=== PATIENT | female | born 1980 | race Caucasian/White ===

== ENCOUNTER 2016-06-21 10:35 | Emergency (ER) | payer MEDICARE, MEDICAID ==
[2016-06-21 10:53] VITALS: BP 126/86
--- NOTE | 2016-06-21 11:19 | EDM.PDOC ---
ED HPI Trauma - General Chief Complaint: Lower Extremity Injury/Pain Stated Complaint: RT LEG PAIN Time Seen by Provider: 06/21/16 11:00 Source: Reports: Patient History Limitations: Reports: No limitations - History of Present Illness INITIAL COMMENTS - FREE TEXT/NARRATIVE: 35-year-old female with right lower stream the radiculopathy scheduled for back surgery in 5 days. She had a preoperative physical exam this morning but is having increased pain and came to the emergency room for pain relief. Severity: moderate Associated Symptoms: Denies: headache, lightheadedness Allergies/ADRs: Allergies No Known Allergies Allergy (Verified 05/09/16 10:52) Home Medications: Ambulatory Orders Cetirizine [ZyrTEC] 10 mg PO DAILY 02/23/15 [Confirmed 06/21/16] Spironolactone [Aldactone] 100 mg PO DAILY 02/23/15 [Confirmed 06/21/16] lamoTRIgine [Lamotrigine ER] 25 mg PO TID 02/23/15 [Confirmed 06/21/16] metFORMIN HCl [Metformin HCl] 1,000 mg PO BID 02/23/15 [Confirmed 06/21/16] ALPRAZolam [Alprazolam] 1 mg PO TID PRN 02/26/16 [Confirmed 06/21/16] Baclofen [Baclofen] 10 mg PO DAILY 05/09/16 [Confirmed 06/21/16] Gabapentin [Gabapentin] 300 mg PO TID 05/09/16 [Confirmed 06/21/16] Norgestimate-Ethinyl Estradiol [Trinessa Lo Tablet] 1 tab PO DAILY 05/09/16 [ Confirmed 06/21/16] valACYclovir HCl [valACYclovir] 1,000 mg PO DAILY 05/09/16 [Confirmed 06/21/16] Acetaminophen/HYDROcodone [[place] 325-5 MG] 1 - 2 tab PO Q6H PRN 05/17/16 [ Confirmed 06/21/16] Past Medical History Gastrointestinal History: Reports: Chronic constipation, Hemorrhoids Genitourinary History: Reports: Renal calculus 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: Polycystic Ovaries Musculoskeletal History: Reports: Back pain, chronic Other Musculoskeletal History: bulging disk Psychiatric History: Reports: Anxiety, Bipolar, Emotional problems, Suicide attempt, Suicidal ideation Endocrine/Metabolic History: Reports: Diabetes, type II Dermatologic History: Reports: Psoriasis - Past Surgical History Female Surgical History: Reports: Lithotripsy/ESWL Social & Family History - Tobacco Use Smoking Status *Q: Never Smoker Second Hand Smoke Exposure: No - Caffeine Use Caffeine Use: Reports: Coffee Other Caffeine Use: 1 per day - Alcohol Use Days Per Week of Alcohol Use: 0 - Recreational Drug Use Recreational Drug Use: No Review of Systems - Review of Systems Review Of Systems: See Below Constitutional: Denies: fever Respiratory: Denies: shortness of breath Cardiovascular: Denies: chest pain GI/Abdominal: Denies: Abdominal pain Neurological: Denies: headache Trauma Exam - Physical Exam Exam: See Below Exam Limited By: No limitations General Appearance: Reports: alert, moderate distress (Patient is tearful, looks uncomfortable) Respiratory Exam: Reports: no respiratory distress Neurologic: Reports: no motor/sensory deficits (She has some radiculopathy when raising the right leg but her strength is symmetric and I see no atrophy of the leg) Course - Vital Signs Last Recorded V/S: Last Vital Signs Temp 98.1 F 06/21/16 10:53 Pulse 83 06/21/16 10:53 Resp 16 06/21/16 10:53 BP 126/86 06/21/16 10:53 Pulse Ox 96 06/21/16 10:53 - Re-Assessments/Exams Free Text/Narrative Re-Assessment/Exam: 06/21/16 11:18 Patient was given 15 doses of Dilaudid 2 mg to take one every 6 hours until her surgery. I emphasized the importance of using the pain medication as directed. She will be getting her surgery on the sixth as scheduled Departure - Departure Time of Disposition: 12:17 Disposition: Home, Self-Care 01 Condition: good Clinical Impression: Lumbar back pain with radiculopathy affecting right lower extremity Instructions: Back Pain, Adult, [id number] Referrals: PCP,None [Primary Care Provider] - Forms: ED Department Discharge Care Plan Goals: Continue with your current medications, add Dilaudid 2 mg every 6 hours as needed for pain and have your surgery as scheduled.
== END 2016-06-21 11:45 | disposition home or self-care (01) ==
LOC: JP.ED 10:35
DX: M54.17 Radiculopathy, lumbosacral region (principal); F41.9 Anxiety disorder, unspecified; F31.9 Bipolar disorder, unspecified; E11.9 Type 2 diabetes mellitus without complications; Z79.899 Other long term (current) drug therapy
CPT/HCPCS: 99283

== ENCOUNTER 2016-11-20 21:42 | Emergency (ER) | payer MEDICARE, MEDICAID ==
[2016-11-20 22:44] VITALS: BP 150/91
--- NOTE | 2016-11-20 23:02 | EDM.PDOC ---
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 She scraped her left cheek and sustained a laceration to the left side of her forehead. No loss of consciousness No nausea no vomiting Materially she couldn't see over left eye but her vision is fine now. No other injuries apart from a superficial scrape her right knee Left Head Pain Score (Numeric/FACES): 5 - Related Data Allergies Allergy/AdvReac Type Severity Reaction Status Date / Time No Known Allergies Allergy Verified 05/09/16 10:52 Home Meds: Home Meds Cetirizine [ZyrTEC] 10 mg PO DAILY 02/23/15 [History] Spironolactone [Aldactone] 100 mg PO DAILY 02/23/15 [History] metFORMIN HCl [Metformin HCl] 1,000 mg PO BID 02/23/15 [History] valACYclovir HCl [valACYclovir] 1,000 mg PO DAILY 05/09/16 [History] ARIPiprazole [Abilify] 5 mg PO DAILY 11/20/16 [History] Norgestimate-Ethinyl Estradiol [Ortho Tri-Cyclen 28 Tablet] 11/20/16 [History] Past Medical History Gastrointestinal History: Reports: Chronic Constipation, Hemorrhoids Genitourinary History: Reports: Renal Calculus 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: Polycystic Ovaries Musculoskeletal History: Reports: Back Pain, Chronic Other Musculoskeletal History: bulging disk Psychiatric History: Reports: Anxiety, Bipolar, Emotional Problems, Suicide Attempt, Suicidal Ideation Endocrine/Metabolic History: Reports: Other (See Below) Other Endocrine/Metabolic History: pcos Dermatologic History: Reports: Psoriasis - Past Surgical History Female Surgical History: Reports: Lithotripsy/ESWL Social & Family History - Tobacco Use Smoking Status *Q: Never Smoker Second Hand Smoke Exposure: No - Caffeine Use Caffeine Use: Reports: Soda Other Caffeine Use: 1 per day - Alcohol Use Days Per Week of Alcohol Use: 0 - Recreational Drug Use Recreational Drug Use: No ED ROS GENERAL - Review of Systems Review Of Systems: See Below Musculoskeletal: Reports: Other (Scrape and small amount swelling and pain right knee) Skin: Reports: Other (Scraped his left cheek and laceration to the left side of forehead) Neurological: Reports: Headache ED EXAM, SKIN/RASH Exam: See Below Exam Limited By: No Limitations General Appearance: Alert, Anxious, Mild Distress Eye Exam: Bilateral Eye: Normal Inspection Ears: Normal External Exam, Normal Canal Nose: Normal Inspection, Normal Mucosa Throat/Mouth: Normal Inspection, Normal Teeth, Normal Oropharynx, Normal Voice Head: Other (Abrasion to the left cheek, 2 cm laceration left side of foreheadNo injury to nose or eyes or mouth) Neck: Normal Inspection, Non-Tender Respiratory/Chest: No Respiratory Distress, No Accessory Muscle Use Cardiovascular: Regular Rate, Rhythm, Tachycardia Extremities: Other (Superficial abrasion of right knee anterior aspect normal range of motion) Neurological: Alert, Oriented, No Motor/Sensory Deficits Skin: Warm, No Rash Lymphatic: No Adenopathy ED SKIN PROCEDURES - Laceration/Wound Repair Left Forehead Lac/Wound length In cm: 2 Appearance: Subcutaneous Distal NVT: Neuro & Vascular Intact Anesthetic Type: Local Local Anesthesia - Lidocaine (Xylocaine): 1% with EPI Local Anesthetic Volume: 2cc Skin Prep: Chlorhexidine (Hibiciens) Exploration/Debridement/Repair: Wound Explored, No Foreign Material Found, Other (No debridement or undermining) Closed with: Sutures Suture Size: other (6-0) # of Sutures: 3 Sterile Dressing Applied: Nurse Tetanus Status Addressed: Yes Complications: No Course - Vital Signs Last Recorded V/S: Last Vital Signs Temp 37.2 C 11/20/16 22:50 Pulse 117 H 11/20/16 22:50 Resp 18 11/20/16 22:50 BP 150/91 H 11/20/16 22:50 Pulse Ox 97 11/20/16 22:50 - Orders/Labs/Meds Orders: Active Orders 24 hr Category Date Time Status Occlusive Dressing [Wound Care] [RC] DAILY Care 11/20/16 23:30 Active Vaccines to be Administered [RC] PER UNIT ROUTINE Care 11/20/16 23:33 Active Meds: Medications Discontinued Medications Generic Name Dose Route Start Last Admin Trade Name Tay PRN Reason Stop Dose Admin Bacitracin 1 dose 11/20/16 23:31 11/20/16 23:37 Bacitracin Oint 1 Gm TOP 11/20/16 23:32 1 dose ONETIME ONE Administration Diphtheria/Tetanus/Acell Pertussis 0.5 ml 11/20/16 23:33 11/20/16 23:46 Adacel IM 11/20/16 23:34 0.5 ml .ONCE ONE Administration - Re-Assessments/Exams Free Text/Narrative Re-Assessment/Exam: 11/20/16 23:38 36-year-old female with head injury without loss of consciousness, scraped her left cheek and right knee and laceration to left side of forehead TDA P administered Dressing to left forehead after sutures Sutures 3, to be removed 5-6 days 11/21/16 02:27 Departure - Departure Time of Disposition: 23:28 Disposition: Home, Self-Care 01 Condition: Good Clinical Impression: Laceration of forehead without complication Qualifiers: Encounter type: initial encounter Qualified Code(s): S01.81XA - Laceration without foreign body of other part of head, initial encounter Head injury, acute, without loss of consciousness Qualifiers: Encounter type: initial encounter Qualified Code(s): S09.90XA - Unspecified injury of head, initial encounter - Discharge Information Instructions: Stitches, [place], or Adhesive Wound Closure, [id number], Head Injury, Adult, [id number] Referrals: PCP,None [Primary Care Provider] - Forms: ED Department Discharge, ED Return to Work/School Form Additional Instructions: Have your 3 stitches removed in 5-6 days You may bathe as usual The wound will heal faster with a dressing, but you may wish to leave it uncovered - My Orders Last 24 Hours: My Active Orders 11/20/16 23:30 Occlusive Dressing [Wound Care] [RC] DAILY 11/20/16 23:33 Vaccines to be Administered [RC] PER UNIT ROUTINE - Assessment/Plan Last 24 Hours: My Active Orders 11/20/16 23:30 Occlusive Dressing [Wound Care] [RC] DAILY 11/20/16 23:33 Vaccines to be Administered [RC] PER UNIT ROUTINE
[2016-11-20] MEDS ORDERED: Bacitracin Oint 1 GM U/D Packet TOP ONE (23:31)
[2016-11-20] MEDS ORDERED: Diphtheria,Pertussis(Acell),Tetanus Vaccine 0.5 ML SDV IM ONE (23:33)
== END 2016-11-20 23:57 | disposition home or self-care (01) ==
LOC: JP.ED 21:42
DX: S01.81XA Laceration without foreign body of other part of head, initial encounter (principal); S80.211A Abrasion, right knee, initial encounter; F31.9 Bipolar disorder, unspecified; Z79.899 Other long term (current) drug therapy; Z23 Encounter for immunization; Z79.84 Long term (current) use of oral hypoglycemic drugs; W01.198A Fall on same level from slipping, tripping and stumbling with subsequent striking against other object, initial encounter; Y92.009 Unspecified place in unspecified non-institutional (private) residence as the place of occurrence of the external cause
CPT/HCPCS: 12001; 12011; 90471; 90715; 99283-25

== ENCOUNTER 2016-11-25 16:44 | Emergency (ER) | payer MEDICARE, MEDICAID ==
[2016-11-25 16:58] VITALS: BP 136/84
--- NOTE | 2016-11-25 17:10 | EDM.PDOC ---
[id number]: REMOVE STITCHES Time Seen by Provider: 11/25/16 16:59 Source of Information: Reports: Patient History Limitations: Reports: No Limitations - History of Present Illness INITIAL COMMENTS - FREE TEXT/NARRATIVE: 36-year-old female had 3 stitches in her left eyebrow 6 days ago after falling. She is in for suture removal. Location: Reports: Face Severity: Mild - Related Data Allergies Allergy/AdvReac Type Severity Reaction Status Date / Time No Known Allergies Allergy Verified 05/09/16 10:52 Home Meds: Home Meds Cetirizine [ZyrTEC] 10 mg PO DAILY 02/23/15 [History] Spironolactone [Aldactone] 100 mg PO DAILY 02/23/15 [History] metFORMIN HCl [Metformin HCl] 1,000 mg PO BID 02/23/15 [History] valACYclovir HCl [valACYclovir] 1,000 mg PO DAILY 05/09/16 [History] ARIPiprazole [Abilify] 5 mg PO DAILY 11/20/16 [History] Norgestimate-Ethinyl Estradiol [Ortho Tri-Cyclen 28 Tablet] 11/20/16 [History] Past Medical History Gastrointestinal History: Reports: Chronic Constipation, Hemorrhoids Genitourinary History: Reports: Renal Calculus 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: Polycystic Ovaries Musculoskeletal History: Reports: Back Pain, Chronic Other Musculoskeletal History: bulging disk Psychiatric History: Reports: Anxiety, Bipolar, Emotional Problems, Suicide Attempt, Suicidal Ideation Endocrine/Metabolic History: Reports: Other (See Below) Other Endocrine/Metabolic History: pcos Dermatologic History: Reports: Psoriasis - Past Surgical History Female Surgical History: Reports: Lithotripsy/ESWL Social & Family History - Tobacco Use Smoking Status *Q: Never Smoker Second Hand Smoke Exposure: No - Caffeine Use Caffeine Use: Reports: Soda Other Caffeine Use: 1 per day - Alcohol Use Days Per Week of Alcohol Use: 0 - Recreational Drug Use Recreational Drug Use: No ED ROS GENERAL - Review of Systems Review Of Systems: See Below Constitutional: Denies: Fever Respiratory: Denies: Shortness of Breath Neurological: Reports: Dizziness. Denies: Headache Psychiatric: Reports: Anxiety ED EXAM, SKIN/RASH Exam: See Below Exam Limited By: No Limitations General Appearance: Alert, Anxious Head: Other (Patient has 3 small stitches just lateral to the left eyebrow) Respiratory/Chest: No Respiratory Distress Psychiatric: Anxious Course - Vital Signs Last Recorded V/S: Last Vital Signs Temp 97.9 F 11/25/16 16:57 Pulse 100 11/25/16 16:57 Resp 18 11/25/16 16:57 BP 136/84 11/25/16 16:57 Pulse Ox 96 11/25/16 16:57 - Re-Assessments/Exams Free Text/Narrative Re-Assessment/Exam: 11/25/16 17:08 Sutures were removed without difficulty. The patient did have a period of vasovagal discomfort but improved. She just needs to keep the wound clean while healing. Departure - Departure Time of Disposition: 17:17 Disposition: Home, Self-Care 01 Condition: Good Clinical Impression: Visit for suture removal - Discharge Information Instructions: Suture Removal, Care After Referrals: PCP,None [Primary Care Provider] - Forms: ED Department Discharge Care Plan Goals: Keep area clean while healing. Return if concerns of infection or not healing satisfactorily.
== END 2016-11-25 17:18 | disposition home or self-care (01) ==
LOC: JP.ED 16:44
DX: S01.112D Laceration without foreign body of left eyelid and periocular area, subsequent encounter (principal); F20.9 Schizophrenia, unspecified; Z87.442 Personal history of urinary calculi; Z79.899 Other long term (current) drug therapy; W19.XXXD Unspecified fall, subsequent encounter
CPT/HCPCS: 99282

== ENCOUNTER 2017-06-28 12:56 | Emergency (ER) | payer MEDICARE, BC ==
--- NOTE | 2017-06-28 13:03 | EDM.PDOCBH ---
ED HPI GENERAL MEDICAL PROBLEM - General Chief Complaint: Behavioral/Psych Stated Complaint: EVAL Time Seen by Provider: 06/28/17 13:00 Source of Information: Reports: Patient, Old Records, Police History Limitations: Reports: No Limitations - History of Present Illness INITIAL COMMENTS - FREE TEXT/NARRATIVE: 36 yo female brought in by police for suicidal ideation. Wanted to stab herself. Denies ingestions. Has not been taking her psych meds as she does not like the side effects(x 2 weeks). No ETOH. Says now that she is here she really doesn't want to harm herself. Had been in a disagreement with her boyfriend at the time of today's incident. Was here a couple yrs ago for a similar situation. 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 (see below) (none) - Related Data Allergies Allergy/AdvReac Type Severity Reaction Status Date / Time No Known Allergies Allergy Verified 06/28/17 13:02 Home Meds: Home Meds Nitrofurantoin Monohyd/M-Cryst [Macrobid 100 mg Capsule] 100 mg PO Q12H #10 capsule 06/28/17 [Rx] Past Medical History Gastrointestinal History: Reports: Chronic Constipation, Hemorrhoids Genitourinary History: Reports: Renal Calculus 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: Polycystic 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 Musculoskeletal History: Reports: Back Pain, Chronic Other Musculoskeletal History: bulging disk Psychiatric History: Reports: Anxiety, Bipolar, Emotional Problems, Suicide Attempt, Suicidal Ideation Endocrine/Metabolic History: Reports: Other (See Below) Other Endocrine/Metabolic History: pcos Dermatologic History: Reports: Psoriasis - Past Surgical History Female Surgical History: Reports: Lithotripsy/ESWL Social & Family History - Tobacco Use Smoking Status *Q: Never Smoker Second Hand Smoke Exposure: No - Caffeine Use Caffeine Use: Reports: Soda Other Caffeine Use: 1 per day - Alcohol Use Days Per Week of Alcohol Use: 0 - Recreational Drug Use Recreational Drug Use: No ED ROS GENERAL - Review of Systems Review Of Systems: See Below Constitutional: Reports: No Symptoms HEENT: Reports: No Symptoms Respiratory: Reports: No Symptoms Cardiovascular: Reports: No Symptoms GI/Abdominal: Reports: No Symptoms : Reports: No Symptoms Musculoskeletal: Reports: No Symptoms Skin: Reports: No Symptoms Neurological: Reports: No Symptoms Psychiatric: Reports: Depression, Suicidal Ideation (now better) ED EXAM, BEHAVIORAL HEALTH - Physical Exam Exam: See Below Exam Limited By: No Limitations General Appearance: Alert, WD/WN, No Apparent Distress, Obese Eye Exam: Bilateral Eye: Normal Inspection Ears: Normal External Exam, Normal Canal, Hearing Grossly Normal, Normal TMs Nose: Normal Inspection, Normal Mucosa, No Blood Throat/Mouth: Normal Inspection, Normal Lips, Normal Oropharynx, Normal Voice, No Airway Compromise Head: Atraumatic, Normocephalic Neck: Normal Inspection, Supple, Non-Tender Respiratory/Chest: No Respiratory Distress, Lungs Clear, Normal Breath Sounds, No Accessory Muscle Use Cardiovascular: Regular Rate, Rhythm, No Edema GI/Abdominal: Normal Bowel Sounds, Soft, Non-Tender, No Distention Back Exam: Normal Inspection. No: CVA Tenderness (R), CVA Tenderness (L) Extremities: Normal Inspection, Normal Range of Motion, Non-Tender, No Pedal Edema Neurological: Alert, Normal Mood/Affect, CN II-XII Intact, Normal Cognition, No Motor/Sensory Deficits, Oriented x 3 Psychiatric: Alert, Normal Affect, Normal Cognition, Normal Mood, Oriented. No : Homicidal Thoughts, Suicidal Plan, Suicidal Thoughts (denies now), Paranoid Thoughts Skin Exam: Warm, Dry, Intact, Normal color, No rash COURSE, BEHAVIORAL HEALTH COMP - Course Vital Signs: Last Vital Signs Temp 35.8 C 06/28/17 13:06 Pulse 104 H 06/28/17 13:06 Resp 18 06/28/17 13:06 BP 140/94 H 06/28/17 13:06 Pulse Ox 95 06/28/17 13:06 Orders, Labs, Meds: Active Orders 24 hr Category Date Time Status CULTURE URINE [RM] Stat Lab 06/28/17 14:30 Received Laboratory Tests 06/28/17 06/28/17 06/28/17 Range/Units 13:10 13:10 13:10 WBC 7.6 (4.5-11.0) K/uL RBC 5.11 (3.30-5.50) M/uL Hgb 14.0 (12.0-15.0) g/dL Hct 43.3 (36.0-48.0) % MCV 85 (80-98) fL MCH 27 (27-31) pg MCHC 32 (32-36) % Plt Count 266 (150-400) K/uL Sodium 144 (140-148) mmol/L Potassium 3.9 (3.6-5.2) mmol/L Chloride 108 (100-108) mmol/L Carbon Dioxide 23 (21-32) mmol/L Anion Gap 13.0 (5.0-14.0) mmol/L BUN 9 (7-18) mg/dL Creatinine 0.9 (0.6-1.0) mg/dL Est Cr Clr Drug Dosing 79.34 mL/min Estimated GFR (MDRD) > 60 (>60) Glucose 129 H (74-106) mg/dL Calcium 8.8 (8.5-10.1) mg/dL TSH, Ultra Sensitive 2.918 (0.358-3.740) uIU/mL Urine Color Urine Appearance Urine pH (4.5-8.0) Ur Specific [place] (1.008-1.030) Urine Protein (NEGATIVE) mg/dL Urine Glucose (UA) (NEGATIVE) mg/dL Urine Ketones (NEGATIVE) mg/dL Urine Occult Blood (NEGATIVE) Urine Nitrite (NEGATIVE) Urine Bilirubin (NEGATIVE) Urine Urobilinogen (NORMAL) mg/dL Ur Leukocyte Esterase (NEGATIVE) Urine RBC (0-5) Urine WBC (0-5) Ur Epithelial Cells Amorphous Sediment Urine Bacteria Urine Mucus Urine HCG, Qual Salicylates (2.0-20.0) mg/dL Urine Opiates Screen (NEGATIVE) Ur Oxycodone Screen (NEGATIVE) Urine Methadone Screen (NEGATIVE) Ur Propoxyphene Screen (NEGATIVE) Acetaminophen 0.0 L (10.0-30.0) ug/mL Ur Barbiturates Screen (NEGATIVE) Ur Tricyclics Screen (NEGATIVE) Ur Phencyclidine Scrn (NEGATIVE) Ur Amphetamine Screen (NEGATIVE) U Methamphetamines Scrn (NEGATIVE) Urine MDMA Screen (NEGATIVE) U Benzodiazepines Scrn (NEGATIVE) U Cocaine Metab Screen (NEGATIVE) U Marijuana (THC) Screen (NEGATIVE) Ethyl Alcohol mg/dL 06/28/17 06/28/17 06/28/17 Range/Units 13:10 13:10 14:29 WBC (4.5-11.0) K/uL RBC (3.30-5.50) M/uL Hgb (12.0-15.0) g/dL Hct (36.0-48.0) % MCV (80-98) fL MCH (27-31) pg MCHC (32-36) % Plt Count (150-400) K/uL Sodium (140-148) mmol/L Potassium (3.6-5.2) mmol/L Chloride (100-108) mmol/L Carbon Dioxide (21-32) mmol/L Anion Gap (5.0-14.0) mmol/L BUN (7-18) mg/dL Creatinine (0.6-1.0) mg/dL Est Cr Clr Drug Dosing mL/min Estimated GFR (MDRD) (>60) Glucose (74-106) mg/dL Calcium (8.5-10.1) mg/dL TSH, Ultra Sensitive (0.358-3.740) uIU/mL Urine Color Yellow Urine Appearance Cloudy Urine pH 5.0 (4.5-8.0) Ur Specific [place] 1.030 (1.008-1.030) Urine Protein Negative (NEGATIVE) mg/dL Urine Glucose (UA) Normal (NEGATIVE) mg/dL Urine Ketones Negative (NEGATIVE) mg/dL Urine Occult Blood Moderate (NEGATIVE) Urine Nitrite Positive H (NEGATIVE) Urine Bilirubin Negative (NEGATIVE) Urine Urobilinogen Normal (NORMAL) mg/dL Ur Leukocyte Esterase Negative (NEGATIVE) Urine RBC 0-5 (0-5) Urine WBC 10-20 H (0-5) Ur Epithelial Cells Many Amorphous Sediment Not seen Urine Bacteria Many Urine Mucus Moderate Urine HCG, Qual Salicylates < 0.2 L (2.0-20.0) mg/dL Urine Opiates Screen (NEGATIVE) Ur Oxycodone Screen (NEGATIVE) Urine Methadone Screen (NEGATIVE) Ur Propoxyphene Screen (NEGATIVE) Acetaminophen (10.0-30.0) ug/mL Ur Barbiturates Screen (NEGATIVE) Ur Tricyclics Screen (NEGATIVE) Ur Phencyclidine Scrn (NEGATIVE) Ur Amphetamine Screen (NEGATIVE) U Methamphetamines Scrn (NEGATIVE) Urine MDMA Screen (NEGATIVE) U Benzodiazepines Scrn (NEGATIVE) U Cocaine Metab Screen (NEGATIVE) U Marijuana (THC) Screen (NEGATIVE) Ethyl Alcohol < 3 mg/dL 06/28/17 06/28/17 Range/Units 14:29 14:29 WBC (4.5-11.0) K/uL RBC (3.30-5.50) M/uL Hgb (12.0-15.0) g/dL Hct (36.0-48.0) % MCV (80-98) fL MCH (27-31) pg MCHC (32-36) % Plt Count (150-400) K/uL Sodium (140-148) mmol/L Potassium (3.6-5.2) mmol/L Chloride (100-108) mmol/L Carbon Dioxide (21-32) mmol/L Anion Gap (5.0-14.0) mmol/L BUN (7-18) mg/dL Creatinine (0.6-1.0) mg/dL Est Cr Clr Drug Dosing mL/min Estimated GFR (MDRD) (>60) Glucose (74-106) mg/dL Calcium (8.5-10.1) mg/dL TSH, Ultra Sensitive (0.358-3.740) uIU/mL Urine Color Urine Appearance Urine pH (4.5-8.0) Ur Specific [place] (1.008-1.030) Urine Protein (NEGATIVE) mg/dL Urine Glucose (UA) (NEGATIVE) mg/dL Urine Ketones (NEGATIVE) mg/dL Urine Occult Blood (NEGATIVE) Urine Nitrite (NEGATIVE) Urine Bilirubin (NEGATIVE) Urine Urobilinogen (NORMAL) mg/dL Ur Leukocyte Esterase (NEGATIVE) Urine RBC (0-5) Urine WBC (0-5) Ur Epithelial Cells Amorphous Sediment Urine Bacteria Urine Mucus Urine HCG, Qual Negative Salicylates (2.0-20.0) mg/dL Urine Opiates Screen Negative (NEGATIVE) Ur Oxycodone Screen Negative (NEGATIVE) Urine Methadone Screen Negative (NEGATIVE) Ur Propoxyphene Screen Negative (NEGATIVE) Acetaminophen (10.0-30.0) ug/mL Ur Barbiturates Screen Negative (NEGATIVE) Ur Tricyclics Screen Negative (NEGATIVE) Ur Phencyclidine Scrn Negative (NEGATIVE) Ur Amphetamine Screen Negative (NEGATIVE) U Methamphetamines Scrn Negative (NEGATIVE) Urine MDMA Screen Negative (NEGATIVE) U Benzodiazepines Scrn Negative (NEGATIVE) U Cocaine Metab Screen Negative (NEGATIVE) U Marijuana (THC) Screen Negative (NEGATIVE) Ethyl Alcohol mg/dL Medications Discontinued Medications Generic Name Dose Route Start Last Admin Trade Name Freq PRN Reason Stop Dose Admin Nitrofurantoin Macrocrystals 100 mg 06/28/17 15:10 06/28/17 15:51 Macrobid PO 06/28/17 15:11 100 mg ONETIME ONE Administration Medical Clearance: 06/28/17 17:48 Crisis consultation obtained. Departure - Departure Time of Disposition: 17:55 Disposition: Home, Self-Care 01 Condition: Good Clinical Impression: Cystitis, Depressive disorder, Suicidal ideation - Discharge Information Prescriptions: Nitrofurantoin Monohyd/M-Cryst [Macrobid 100 mg Capsule] 100 mg PO Q12H #10 capsule Referrals: PCP,None [Primary Care Provider] - Forms: ED Department Discharge - My Orders Last 24 Hours: My Active Orders 06/28/17 14:30 CULTURE URINE [RM] Stat - Assessment/Plan Last 24 Hours: My Active Orders 06/28/17 14:30 CULTURE URINE [RM] Stat
[2017-06-28 13:06] VITALS: BP 140/94
[2017-06-28] MEDS ORDERED: Nitrofurantoin Monohydrate/Macrocrystalline 100 MG Cap PO ONE (15:10)
== END 2017-06-28 18:32 | disposition home or self-care (01) ==
LOC: JP.ED 12:56
DX: F32.9 Major depressive disorder, single episode, unspecified (principal); R45.851 Suicidal ideations; N30.90 Cystitis, unspecified without hematuria; F41.9 Anxiety disorder, unspecified; Z79.899 Other long term (current) drug therapy
CPT/HCPCS: 36415; 80048; 80305; 81001; 81025; 84443; 85027; 87086; 87088; 87186; 99284; 99285; A9270; G0480

== ENCOUNTER 2017-11-11 12:40 | Emergency (ER) | payer MEDICARE, BC ==
[2017-11-11 13:45] VITALS: BP 136/91
[2017-11-11] MEDS ORDERED: Doxycycline 100 MG Cap PO ONE (13:52)
--- NOTE | 2017-11-11 13:56 | EDM.PDOC ---
ED HPI GENERAL MEDICAL PROBLEM - General Chief Complaint: Skin Complaint Stated Complaint: TICK BITE/INFECTED? Time Seen by Provider: 11/11/17 13:45 Source of Information: Reports: Patient History Limitations: Reports: No Limitations - History of Present Illness INITIAL COMMENTS - FREE TEXT/NARRATIVE: 37-year-old female was bit on the right posterior shoulder one week ago, the tick was pulled off in its entirety along with a small amount of skin. She is concerned because she has a round very reddened area where the bite jacek is at. It is door tender, about "quarter sized". Otherwise feels okay. Duration: Day(s): (7 days) Location: Reports: Back Severity: Mild Associated Symptoms: Reports: No Other Symptoms Right Upper Back Pain Score (Numeric/FACES): 2 - Related Data Allergies Allergy/AdvReac Type Severity Reaction Status Date / Time No Known Allergies Allergy Verified 11/11/17 13:55 Home Meds: Home Meds Cetirizine [ZyrTEC] 10 mg PO DAILY 11/11/17 [History] Spironolactone [Aldactone] 100 mg PO DAILY 11/11/17 [History] metFORMIN HCl [Metformin HCl ER] 500 mg PO DAILY 11/11/17 [History] Past Medical History Gastrointestinal History: Reports: Chronic Constipation, Hemorrhoids Genitourinary History: Reports: Renal Calculus 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: Reports: Polycystic Ovaries Musculoskeletal History: Reports: Back Pain, Chronic Other Musculoskeletal History: bulging disk Psychiatric History: Reports: Anxiety, Bipolar, Emotional Problems, Suicide Attempt, Suicidal Ideation Endocrine/Metabolic History: Reports: Other (See Below) Other Endocrine/Metabolic History: pcos Dermatologic History: Reports: Psoriasis - Past Surgical History Female Surgical History: Reports: Lithotripsy/ESWL Social & Family History - Tobacco Use Smoking Status *Q: Never Smoker - Caffeine Use Caffeine Use: Reports: None Other Caffeine Use: 1 per day - Recreational Drug Use Recreational Drug Use: No ED ROS GENERAL - Review of Systems Review Of Systems: See Below Constitutional: Denies: Fever, Chills Respiratory: Denies: Shortness of Breath GI/Abdominal: Denies: Nausea, Vomiting Neurological: Denies: Headache ED EXAM, SKIN/RASH Exam: See Below Exam Limited By: No Limitations General Appearance: Alert, No Apparent Distress Head: Atraumatic Respiratory/Chest: No Respiratory Distress Neurological: Alert, Oriented Psychiatric: Normal Affect, Normal Mood Skin: Other (Patient has a 3 cm, round nonblanching macular patch of erythema with a central insect bite, it is not fluctuant or swollen or warm) Course - Vital Signs Last Recorded V/S: Last Vital Signs Temp 98.6 F 11/11/17 13:31 Pulse 97 11/11/17 13:31 Resp 14 11/11/17 13:31 BP 136/91 H 11/11/17 13:31 Pulse Ox 96 11/11/17 13:31 - Orders/Labs/Meds Meds: Medications Discontinued Medications Generic Name Dose Route Start Last Admin Trade Name Freq PRN Reason Stop Dose Admin Doxycycline Hyclate 200 mg 11/11/17 13:52 11/11/17 14:04 Vibramycin PO 11/11/17 13:53 200 mg ONETIME ONE Administration - Re-Assessments/Exams Free Text/Narrative Re-Assessment/Exam: 11/11/17 13:55 Patient was given 200 mg of oral doxycycline, also explained that this is likely a toxic reaction to the bite and not a true infection at this point. If it worsens they will return for recheck. No further treatment necessary at this time. Departure - Departure Time of Disposition: 14:11 Disposition: Home, Self-Care 01 Condition: Good Clinical Impression: Tick bite of right shoulder Qualifiers: Encounter type: initial encounter Qualified Code(s): S40.261A - Insect bite ( nonvenomous) of right shoulder, initial encounter - Discharge Information Instructions: Tick Bite Information, Adult, [id number] Referrals: PCP,None [Primary Care Provider] - Forms: ED Department Discharge Care Plan Goals: Keep area clean while healing and return if worsening such as increased redness , fever or pain.
== END 2017-11-11 14:10 | disposition home or self-care (01) ==
LOC: JP.ED 12:40
DX: S40.261A Insect bite (nonvenomous) of right shoulder, initial encounter (principal); Z79.899 Other long term (current) drug therapy; W57.XXXA Bitten or stung by nonvenomous insect and other nonvenomous arthropods, initial encounter
CPT/HCPCS: 99283; A9270

== ENCOUNTER 2020-12-09 13:44 | Emergency (ER) | payer MEDICARE, MEDICAID ==
[2020-12-09] MEDS ORDERED: Ketorolac 30 MG/ML SDV IM ONE (14:22)
--- NOTE | 2020-12-09 14:23 | EDM.PDOC ---
ED HPI GENERAL MEDICAL PROBLEM - General Chief Complaint: Chest Pain Stated Complaint: CHEST PRESSURE,JAW PAIN Time Seen by Provider: 12/09/20 14:05 Source of Information: Reports: Patient, Old Records History Limitations: Reports: No Limitations - History of Present Illness INITIAL COMMENTS - FREE TEXT/NARRATIVE: 40 yo female with no personal or FHx of CAD and who has never smoked presents with a week's duration of central chest pain. Pain is a bit worse with exertion. No SOB, nausea, or diaphoresis. No calf pain or LE edema. No cough or fever. Onset: Gradual Onset Date: 12/02/20 Duration: Week(s): (1), Constant Location: Reports: Chest Quality: Reports: Pressure (mild) Severity: Mild Improves with: Reports: None Worsens with: Reports: Other (walking) Context: Reports: Other (See HPI) Associated Symptoms: Reports: Chest Pain. 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) - Related Data Allergies Allergy/AdvReac Type Severity Reaction Status Date / Time No Known Allergies Allergy Verified 06/04/19 14:08 Home Meds: Home Meds Cetirizine [ZyrTEC] 10 mg PO DAILY 11/11/17 [History] Spironolactone [Aldactone] 100 mg PO DAILY 11/11/17 [History] metFORMIN HCl [Metformin HCl ER] 500 mg PO DAILY 11/11/17 [History] ALPRAZolam [Xanax] 1 mg PO QID PRN 04/30/19 [History] valACYclovir [Valtrex] 1,000 mg PO DAILY 04/30/19 [History] Meloxicam [Mobic] 7.5 mg PO BID #20 tablet 12/09/20 [Rx] Past Medical History Gastrointestinal History: Reports: Chronic Constipation, Hemorrhoids Genitourinary History: Reports: 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 Musculoskeletal History: Reports: Back Pain, Chronic Other Musculoskeletal History: bulging disk Psychiatric History: Reports: Anxiety, Bipolar, Emotional Problems, Suicide Attempt, Suicidal Ideation Endocrine/Metabolic History: Reports: Other (See Below) Other Endocrine/Metabolic History: pcos Dermatologic History: Reports: Psoriasis - Past Surgical History Female Surgical History: Reports: Lithotripsy/ESWL Social & Family History - Tobacco Use Tobacco Use Status *Q: Never Tobacco User - Caffeine Use Caffeine Use: Reports: Coffee, Soda, Tea Other Caffeine Use: 1 per day - Recreational Drug Use Recreational Drug Use: No ED ROS GENERAL - Review of Systems Review Of Systems: See Below Constitutional: Reports: No Symptoms HEENT: Reports: No Symptoms Respiratory: Reports: No Symptoms. Denies: Shortness of Breath, Pleuritic Chest Pain Cardiovascular: Reports: Chest Pain Endocrine: Reports: No Symptoms GI/Abdominal: Reports: No Symptoms : Reports: No Symptoms Musculoskeletal: Reports: No Symptoms Skin: Reports: No Symptoms Neurological: Reports: No Symptoms Psychiatric: Reports: No Symptoms ED EXAM, GENERAL - Physical Exam Exam: See Below Exam Limited By: No Limitations General Appearance: Alert, WD/WN, No Apparent Distress Eye Exam: Bilateral Eye: Normal Inspection Ears: Normal External Exam, Normal Canal, Hearing Grossly Normal Ear Exam: Bilateral Ear: Auricle Normal, Canal Normal Nose: Normal Inspection, No Blood Throat/Mouth: Normal Inspection, Normal Lips, Normal Oropharynx, Normal Voice, No Airway Compromise Head: Atraumatic, Normocephalic Neck: Normal Inspection Respiratory/Chest: No Respiratory Distress, Lungs Clear, Normal Breath Sounds, No Accessory Muscle Use. No: Chest Non-Tender Cardiovascular: Regular Rate, Rhythm, No Edema GI/Abdominal: Normal Bowel Sounds, Soft, Non-Tender, No Distention Back Exam: Normal Inspection. No: CVA Tenderness (R), CVA Tenderness (L) Extremities: Normal Inspection, Normal Range of Motion, Non-Tender, No Pedal Edema Neurological: Alert, Oriented, CN II-XII Intact, Normal Cognition, No Motor/Sensory Deficits Psychiatric: Normal Affect, Normal Mood Skin Exam: Warm, Dry, Intact, Normal Color, No Rash #1 Interpretation EKG Date: 12/09/20 Time: 14:00 Rhythm: NSR Rate (Beats/Min): 80 Shiner: Normal P-Wave: Present QRS: Normal ST-T: Normal QT: Normal Comparison: NA - No Prior EKG Course - Vital Signs Last Recorded V/S: Last Vital Signs Temp 36.7 C 12/09/20 14:15 Pulse 74 12/09/20 14:15 Resp 16 12/09/20 14:15 BP 149/86 H 12/09/20 14:15 Pulse Ox 95 12/09/20 14:15 - Orders/Labs/Meds Orders: Active Orders 24 hr Category Date Time Status Cardiac Monitoring [RC] .As Directed Care 12/09/20 13:46 Active EKG 12 Lead [EK] Routine Ther 12/09/20 13:45 Ordered Meds: Medications Discontinued Medications Generic Name Dose Route Start Last Admin Trade Name Tay PRN Reason Stop Dose Admin Ketorolac Tromethamine 30 mg 12/09/20 14:22 Ketorolac 30 Mg/Ml Sdv IM 12/09/20 14:23 ONETIME ONE Departure - Departure Time of Disposition: 14:35 Disposition: Home, Self-Care 01 Condition: Good Clinical Impression: Costochondritis Prescriptions: Meloxicam [Mobic] 7.5 mg PO BID #20 tablet Instructions: Costochondritis, [id number] Referrals: PCP,None [Primary Care Provider] - Forms: ED Department Discharge Additional Instructions: Take Mobic every 12 hrs starting before bedtime tonight. Add acetaminophen up to 1000 mg every 6 hrs as needed for pain relief. Recheck with your provider as needed. Return if a lot worse. Sepsis Event Note (ED) - Focused Exam Vital Signs: Vital Signs Temp Pulse Resp BP Pulse Ox 12/09/20 14:15 36.7 C 74 16 149/86 H 95 - My Orders Last 24 Hours: My Active Orders 12/09/20 13:45 EKG 12 Lead [EK] Routine 12/09/20 13:46 Cardiac Monitoring [RC] .As Directed - Assessment/Plan Last 24 Hours: My Active Orders 12/09/20 13:45 EKG 12 Lead [EK] Routine 12/09/20 13:46 Cardiac Monitoring [RC] .As Directed
[2020-12-09 14:58] VITALS: BP 137/84; PULSE 68
== END 2020-12-09 14:47 | disposition home or self-care (01) ==
LOC: JP.ED 13:44
DX: M94.0 Chondrocostal junction syndrome [Tietze] (principal)
CPT/HCPCS: 93005; 96372; 99284; J1885

== ENCOUNTER 2021-03-13 12:53 | Emergency (ER) | payer MEDICARE, MEDICAID ==
[2021-03-13 13:08] VITALS: BP 145/90; PULSE 69
[2021-03-13] MEDS ORDERED: Ketorolac 30 MG/ML SDV IM ONE (13:23)
--- NOTE | 2021-03-13 13:25 | EDM.PDOC ---
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 The patient does a lot of repetitive motion with her dominant arm which is the right upper extremity but has not experienced this pain before. There are certain positions and changes in position that seem to elicit the sharp, stabbing pain down the arm including [place], pronation, flexion and extension at the elbow and at the shoulder. Patient has a history significant for polycystic ovarian syndrome for which she takes spironolactone and Metformin. The patient also has a history significant for degenerative disc disease, notably mostly in the lumbar spine. Right Arm Pain Score (Numeric/FACES): 12 - Related Data Allergies Allergy/AdvReac Type Severity Reaction Status Date / Time No Known Allergies Allergy Verified 06/04/19 14:08 Home Meds: Home Meds Cetirizine [ZyrTEC] 10 mg PO DAILY 11/11/17 [History] Spironolactone [Aldactone] 100 mg PO DAILY 11/11/17 [History] metFORMIN HCl [Metformin HCl ER] 500 mg PO DAILY 11/11/17 [History] ALPRAZolam [Xanax] 1 mg PO QID PRN 04/30/19 [History] valACYclovir [Valtrex] 1,000 mg PO DAILY 04/30/19 [History] Diclofenac Sodium 75 mg PO TID #21 tablet. 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 Musculoskeletal History: Reports: Back Pain, Chronic Other Musculoskeletal History: bulging disk Psychiatric History: Reports: Anxiety, Bipolar, Emotional Problems, Suicide Attempt, Suicidal Ideation Endocrine/Metabolic History: Reports: Other (See Below) Other Endocrine/Metabolic History: pcos Dermatologic History: Reports: Psoriasis - Infectious Disease History Infectious Disease History: Reports: Chicken Pox - Past Surgical History Female Surgical History: Reports: Lithotripsy/ESWL Neurological Surgical History: Reports: Other (See Below) Other Neurological Surgeries/Procedures: "took out parts of bulging disc". Social & Family History - Tobacco Use Tobacco Use Status *Q: Never Tobacco User - Caffeine Use Caffeine Use: Reports: Energy Drinks Other Caffeine Use: 1 per day - Recreational Drug Use Recreational Drug Use: No Review of Systems - Review of Systems Review Of Systems: See Below Constitutional: Reports: No Symptoms Respiratory: Reports: No Symptoms Cardiovascular: Reports: No Symptoms GI/Abdominal: Reports: No Symptoms Musculoskeletal: Reports: Arm Pain (Right arm and forearm pain with movement) Skin: Reports: No Symptoms Neurological: Reports: No Symptoms ED EXAM, GENERAL - Physical Exam Exam: See Below Exam Limited By: No Limitations General Appearance: Alert, Mild Distress Head: Atraumatic, Normocephalic Neck: Normal Inspection, Supple, Non-Tender, Full Range of Motion, Tender Lateral (Minimal tenderness with palpation over the lateral nerve roots on the right. This does not elicit pain down the arm.) Respiratory/Chest: No Respiratory Distress, Normal Breath Sounds, No Accessory Muscle Use Peripheral Pulses: 2+: Radial (R) Extremities: Normal Inspection, Normal Range of Motion, Joint Swelling, Arm Pain (Not able to elicit any particular painful spot with palpation of the arm or forearm), Other (Certain movements elicit pain like pronation dissemination in the forearm, flexion of the wrist, and flexion of the elbow. There is also some component of pain with movement of the shoulder with abduction, flexion, and external rotation.) Neurological: Alert, Oriented, Normal Cognition, No Motor/Sensory Deficits Psychiatric: Normal Affect, Normal Mood Skin Exam: Warm, Dry, Intact, Normal Color, No Rash Course - Vital Signs Last Recorded V/S: Last Vital Signs Temp 35.4 C L 03/13/21 13:07 Pulse 69 03/13/21 13:07 Resp 16 03/13/21 13:07 BP 145/90 H 03/13/21 13:07 Pulse Ox 96 03/13/21 13:07 - Orders/Labs/Meds Meds: Medications Discontinued Medications Generic Name Dose Route Start Last Admin Trade Name Freq PRN Reason Stop Dose Admin Ketorolac Tromethamine 30 mg 03/13/21 13:23 03/13/21 13:29 Ketorolac 30 Mg/Ml Sdv IM 03/13/21 13:24 30 mg ONETIME ONE Administration Departure - Departure Time of Disposition: 13:37 Disposition: Home, Self-Care 01 Clinical Impression: Repetitive strain injury of right forearm - Discharge Information Prescriptions: Diclofenac Sodium 75 mg PO TID #21 tablet. Instructions: Repetitive Strain Injuries Referrals: PCP,None [Primary Care Provider] - Forms: ED Department Discharge Care Plan Goals: I am placing you on diclofenac 75 mg 3 times a day for the next 7 days to reduce inflammation. I also have put you on work restrictions with no use of the right arm for lifting or carrying and minimal use for other activities. This is for the next week. If not improving, please return to the clinic or ER for reevaluation. Sepsis Event Note (ED) - Evaluation Sepsis Screening Result: No Definite Risk - Focused Exam Vital Signs: Vital Signs Temp Pulse Resp BP Pulse Ox 03/13/21 13:07 35.4 C L 69 16 145/90 H 96 - Problem List & Annotations (1) Repetitive strain injury of right forearm SNOMED Code(s): 489056425 Code(s): S56.911A - STRAIN OF UNSP MUSC/FASC/TEND AT FORARM LV, RIGHT ARM, INIT; X50.3XXA - OVEREXERTION FROM REPETITIVE MOVEMENTS, INITIAL ENCOUNTER Status: Acute Priority: Low Current Visit: Yes - Problem List Review Problem List Initiated/Reviewed/Updated: Yes
== END 2021-03-13 13:47 | disposition home or self-care (01) ==
LOC: JP.ED 12:53
DX: S56.911A Strain of unspecified muscles, fascia and tendons at forearm level, right arm, initial encounter (principal); X50.3XXA Overexertion from repetitive movements, initial encounter; Y92.89 Other specified places as the place of occurrence of the external cause; Y99.0 Civilian activity done for income or pay
CPT/HCPCS: 96372; 99283; J1885

== ENCOUNTER 2021-10-08 17:41 | Emergency (ER) | payer MEDICARE, MEDICAID ==
[2021-10-08 17:54] VITALS: BP 155/94; PULSE 87
== END 2021-10-08 19:01 | disposition home or self-care (01) ==
LOC: JP.ED 17:41
DX: I47.9 Paroxysmal tachycardia, unspecified (principal); R03.0 Elevated blood-pressure reading, without diagnosis of hypertension
CPT/HCPCS: 36415; 80048; 83735; 84443; 84484; 85025; 85379; 93005; 93010; 99283; 99285-25

== ENCOUNTER 2021-10-26 21:15 | Emergency (ER) | payer MEDICARE, MEDICAID ==
[2021-10-26] MEDS ORDERED: Ondansetron 4 MG/2 ML SDV IVPUSH ONE (21:48)
[2021-10-26] MEDS ORDERED: Sodium Chloride 0.9% 10 ML Syringe FLUSH PRN (21:48)
[2021-10-26 21:57] VITALS: BP 131/98; PULSE 103
[2021-10-26] MEDS ORDERED: Sodium Chloride 0.9% 1,000 ML IV SCH (22:00)
[2021-10-26 22:30] LABS: ESTIMATED GFR 72 mL/min (>60)
== END 2021-10-26 23:20 | disposition home or self-care (01) ==
LOC: JP.ED 21:15
DX: R11.2 Nausea with vomiting, unspecified (principal); R19.7 Diarrhea, unspecified; N39.0 Urinary tract infection, site not specified; F41.9 Anxiety disorder, unspecified; Z20.822 Contact with and (suspected) exposure to COVID-19; Z79.899 Other long term (current) drug therapy
CPT/HCPCS: 36415; 80053; 81001; 83735; 83880; 85025; 86140; 96361; 96374; 99285; J2405; J3490; J7030; U0002

== ENCOUNTER 2021-11-05 18:11 | Emergency (ER) | payer MEDICARE, MEDICAID ==
[2021-11-05 19:24] LABS: ESTIMATED GFR 94 mL/min (>60)
[2021-11-05 19:34] LABS: TROPONIN I HIGH SENSITIVITY 6.8 pg/mL (<=60.3)
[2021-11-05 19:54] VITALS: BP 125/84; PULSE 94
== END 2021-11-05 20:15 | disposition home or self-care (01) ==
LOC: JP.ED 18:11
DX: R07.89 Other chest pain (principal); R10.32 Left lower quadrant pain; F45.8 Other somatoform disorders; I10 Essential (primary) hypertension; E11.9 Type 2 diabetes mellitus without complications; Z79.899 Other long term (current) drug therapy; Z79.84 Long term (current) use of oral hypoglycemic drugs
CPT/HCPCS: 36415; 80053; 81001; 81025; 84443; 84484; 85025; 93005; 99285

== ENCOUNTER 2021-11-09 17:38 | Emergency (ER) | payer MEDICARE, MEDICAID ==
[2021-11-09 17:54] VITALS: BP 148/98; PULSE 102
== END 2021-11-09 20:03 | disposition home or self-care (01) ==
LOC: JP.ED 17:38
DX: F41.9 Anxiety disorder, unspecified (principal); K21.9 Gastro-esophageal reflux disease without esophagitis; Z79.84 Long term (current) use of oral hypoglycemic drugs; Z79.899 Other long term (current) drug therapy
CPT/HCPCS: 71046; 71046-26; 74176; 93005; 93010; 99281; 99283

== ENCOUNTER 2021-11-11 10:24 | Emergency (ER) | payer MEDICARE, MEDICAID ==
[2021-11-11 12:17] LABS: ESTIMATED GFR 94 mL/min (>60); TROPONIN I HIGH SENSITIVITY 5.5 pg/mL (<=60.3)
[2021-11-11] MEDS ORDERED: Cyclobenzaprine 10 MG Tab PO ONE (13:43)
[2021-11-11 14:24] VITALS: BP 123/74; PULSE 74
== END 2021-11-11 14:48 | disposition home or self-care (01) ==
LOC: JP.ED 10:24
DX: F41.9 Anxiety disorder, unspecified (principal); E03.9 Hypothyroidism, unspecified; Z79.899 Other long term (current) drug therapy; Z20.822 Contact with and (suspected) exposure to COVID-19
CPT/HCPCS: 36415; 71046; 80053; 84484; 85025; 93005; 93010; 99282; 99284; A9270; U0002

== ENCOUNTER 2021-11-21 05:35 | Day surgery (SDC) | payer MEDICARE, MEDICAID ==
[2021-11-21] MEDS ORDERED: Dextrose 5%-Lactated Ringers 1,000 ML IV SCH (06:00)
[2021-11-21] MEDS ORDERED: Glycopyrrolate 0.2 MG/ML 2 ML SDV IVPUSH ONE (07:00)
[2021-11-21] MEDS ORDERED: Midazolam 1 MG/ML 2 ML SDV ONE (07:06)
[2021-11-21] MEDS ORDERED: fentaNYL 100 MCG/2 ML SDV ONE (07:06)
[2021-11-21] MEDS ORDERED: Propofol 200 MG/20 ML SDV ONE ×2 (07:06→07:41)
[2021-11-21 09:09] VITALS: BP 106/63; PULSE 63
== END 2021-11-21 09:29 | disposition home or self-care (01) ==
LOC: JP.SDS 05:35
PROVIDERS: ATTEND Surgery
DX: K63.5 Polyp of colon (principal); K22.70 Barrett's esophagus without dysplasia; K64.9 Unspecified hemorrhoids; K21.00 Gastro-esophageal reflux disease with esophagitis, without bleeding; K29.60 Other gastritis without bleeding; K44.9 Diaphragmatic hernia without obstruction or gangrene; I10 Essential (primary) hypertension; E03.9 Hypothyroidism, unspecified; Z88.1 Allergy status to other antibiotic agents
CPT/HCPCS: 43239; 45385; 81025; 87081; 88305; J2250; J2704; J3010; J7121

== ENCOUNTER 2021-12-18 01:24 | Emergency (ER) | payer MEDICARE, MEDICAID ==
[2021-12-18 01:43] VITALS: BP 151/99; PULSE 80
[2021-12-18] MEDS ORDERED: Ondansetron 4 MG Tab.DIS PO ONE (01:47)
[2021-12-18] MEDS ORDERED: Gabapentin 300 MG Cap PO ONE (01:49)
== END 2021-12-18 02:14 | disposition home or self-care (01) ==
LOC: JP.ED 01:24
DX: R51.9 Headache, unspecified (principal); I10 Essential (primary) hypertension; K21.9 Gastro-esophageal reflux disease without esophagitis; Z88.1 Allergy status to other antibiotic agents; Z79.899 Other long term (current) drug therapy
CPT/HCPCS: 99283; A9270; Q0162